=== PATIENT | female | born 1990 | race American Indian/Alaskan Native ===

== ENCOUNTER 2017-01-02 04:05 | Emergency (ER) | payer SELFPAY ==
[2017-01-02 05:29] LABS: Hematocrit 35.5 % (30.3-42.9); Hemoglobin 11.4 gm/dl (10.1-14.3); Mean Corpuscular HGB Conc 32 % (30-34); Platelet Count 369 K/mm3 (140-440); Red Cell Distribution Width 19.5 % (13.2-15.2); White Blood Count 10.3 K/mm3 (4.5-11.0)
[2017-01-02 05:32] LABS: Mean Corpuscular Hemoglobin 22 pg (28-32); Mean Corpuscular Volume 68 fl (79-97)
[2017-01-02 05:34] LABS: INR 1.08 (0.87-1.13)
[2017-01-02 05:35] LABS: Partial Thromboplastin Time 24.6 Sec. (24.2-36.6)
[2017-01-02 05:37] LABS: Alanine Aminotransferase 24 units/L (7-56); Albumin 4.8 g/dL (3.9-5); Albumin/Globulin Ratio 1.3 %; Alkaline Phosphatase 111 units/L (35-129); Anion Gap 26 mmol/L; BUN/Creatinine Ratio 14; Blood Urea Nitrogen 11 mg/dL (7-17); Calcium 10.2 mg/dL (8.4-10.2); Carbon Dioxide 23 mmol/L (22-30); Chloride 101.3 mmol/L (98-107); Glucose 113 mg/dL (65-100); Lipase 13 units/L (13-60); Potassium 4.6 mmol/L (3.6-5.0); Sodium 146 mmol/L (137-145); Total Protein 8.4 g/dL (6.3-8.2)
[2017-01-02 06:00] LABS: Bilirubin,Urine NEG (Negative); Blood,Urine SM (Negative); Ketones,Urine TR mg/dL (Negative); Leukocyte Esterase,Urine NEG (Negative); Mucus,Urine 3+ /HPF; Nitrite,Urine NEG (Negative)
[2017-01-02 06:32] LABS: Erythrocyte Sedimentation Rate 2 mm/Hr (0-20)
[2017-01-02] MEDS ORDERED: NACL 0.9% 1000 ML 1,000 ML IV ONE (06:48)
[2017-01-02] MEDS ORDERED: ZOFRAN IV ONE (06:48)
[2017-01-02] MEDS ORDERED: BENTYL IM ONE (06:48)
--- NOTE | 2017-01-02 06:52 | Emergency Department Report ---
ED Abdominal Pain HPI - General Chief Complaint: Abdominal Pain Stated Complaint: ABD PAIN, N/V/D, CHILLS Time Seen by Provider: 01/02/17 06:26 Source: patient Mode of arrival: Ambulatory Limitations: No Limitations - History of Present Illness Initial Comments: 26-year-old female who presents to emergency department complaining of abdominal pain. Patient has had abdominal pain cramping nausea vomiting and diarrhea for the last 4 days. 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 She's had low-grade temperature here in the emergency department. She denies fevers and chills otherwise. She's had no blood in her stool. Denies any known sick contacts. Otherwise no other complaints. MD Complaint: abdominal pain -: days(s) (4) Location: epigastric Radiation: none Severity: moderate Severity scale (0 -10): 0 Quality: cramping Improves With: nothing Worsens With: nothing Associated Symptoms: nausea, vomiting, diarrhea, fever. denies: chills, constipation, dysuria, hematemesis, hematochezia, melena - Related Data Previous Rx's Medication Instructions Recorded Last Taken Type Ondansetron [Zofran Odt] 4 mg PO Q6HR PRN #10 tab.rapdis 01/02/17 Unknown Rx Allergies Allergy/AdvReac Type Severity Reaction Status Date / Time No Known Allergies Allergy Unverified 01/02/17 04:22 ED Review of Systems ROS: Stated complaint: ABD PAIN, N/V/D, CHILLS Other details as noted in HPI Comment: All other systems reviewed and negative Constitutional: fever, malaise. denies: chills ENT: denies: ear pain, throat pain Respiratory: denies: cough, shortness of breath, wheezing Cardiovascular: denies: chest pain, palpitations Endocrine: no symptoms reported Gastrointestinal: abdominal pain, nausea, vomiting, diarrhea Genitourinary: denies: urgency, dysuria, discharge Musculoskeletal: denies: back pain Skin: denies: rash, lesions Neurological: denies: headache, weakness Psychiatric: denies: anxiety, depression Hematological/Lymphatic: denies: easy bleeding, easy bruising ED Past Medical Hx - Past Medical History Previous Medical History?: No - Surgical History Past Surgical History?: No - Family History Family history: no significant - Social History Smoking Status: Never Smoker Substance Use Type: Alcohol - Medications Home Medications: Home Medications Medication Instructions Recorded Confirmed Last Taken Type Ondansetron [Zofran Odt] 4 mg PO Q6HR PRN #10 tab.rapdis 01/02/17 Unknown Rx ED Physical Exam - General Limitations: No Limitations General appearance: alert, in no apparent distress - Head Head exam: Present: atraumatic, normocephalic - Eye Eye exam: Present: normal appearance. Absent: scleral icterus, conjunctival injection - ENT ENT exam: Present: mucous membranes dry - Neck Neck exam: Present: normal inspection - Respiratory Respiratory exam: Present: normal lung sounds bilaterally. Absent: respiratory distress, wheezes - Cardiovascular Cardiovascular Exam: Present: normal rhythm, tachycardia, normal heart sounds. Absent: systolic murmur, diastolic murmur, rubs, gallop - GI/Abdominal GI/Abdominal exam: Present: soft, tenderness (epigastric tenderness), normal bowel sounds. Absent: distended, guarding, rebound - Extremities Exam Extremities exam: Present: normal inspection - Back Exam Back exam: Present: normal inspection - Neurological Exam Neurological exam: Present: alert, oriented X3 - Psychiatric Psychiatric exam: Present: normal affect, normal mood - Skin Skin exam: Present: warm, dry, intact, normal color. Absent: rash ED Course Vital Signs 01/02/17 01/02/17 01/02/17 04:09 06:32 07:46 Temperature 98.1 F 100.2 F H 98.7 F Pulse Rate 152 H 116 H 94 H Respiratory 20 18 18 Rate Blood Pressure 125/74 112/71 106/68 [Right] O2 Sat by Pulse 97 97 99 Oximetry 01/02/17 09:25 Temperature Pulse Rate 82 Respiratory 18 Rate Blood Pressure 95/54 [Right] O2 Sat by Pulse 96 Oximetry ED Medical Decision Making - Lab Data Result diagrams: 01/02/17 04:38 01/02/17 04:38 Laboratory Results - last 24 hr 01/02/17 01/02/17 01/02/17 04:38 04:38 04:38 WBC 10.3 RBC 5.20 H Hgb 11.4 Hct 35.5 MCV 68 L MCH 22 L MCHC 32 RDW 19.5 H Plt Count 369 Seg 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 PT 14.6 INR 1.08 APTT 24.6 VBG pH Sodium Potassium Chloride Carbon Dioxide Anion Gap BUN Creatinine Estimated GFR BUN/Creatinine Ratio Glucose Lactic Acid Calcium Magnesium Total Bilirubin AST ALT Alkaline Phosphatase Troponin T NT-Pro-B Natriuret Pep Total Protein Albumin Albumin/Globulin Ratio Lipase HCG, Qual Negative Urine Color Urine Turbidity Urine pH Ur Specific [place] Urine Protein Urine Glucose (UA) Urine Ketones Urine Blood Urine Nitrite Urine Bilirubin Urine Urobilinogen Ur Leukocyte Esterase Urine WBC (Auto) Urine RBC (Auto) U Epithel Cells (Auto) Hyaline Casts Urine Mucus 01/02/17 01/02/17 01/02/17 04:38 04:38 04:38 WBC RBC Hgb Hct MCV MCH MCHC RDW Plt Count Seg Neutrophils % ESR PT INR APTT VBG pH Sodium 146 H Potassium 4.6 Chloride 101.3 Carbon Dioxide 23 Anion Gap 26 BUN 11 Creatinine 0.8 Estimated GFR > 60 BUN/Creatinine Ratio 14 Glucose 113 H Lactic Acid 4.80 H* Calcium 10.2 Magnesium Total Bilirubin 0.60 AST 24 ALT 24 Alkaline Phosphatase 111 Troponin T < 0.010 NT-Pro-B Natriuret Pep 15.67 Total Protein 8.4 H Albumin 4.8 Albumin/Globulin Ratio 1.3 Lipase 13 HCG, Qual Urine Color Urine Turbidity Urine pH Ur Specific [place] Urine Protein Urine Glucose (UA) Urine Ketones Urine Blood Urine Nitrite Urine Bilirubin Urine Urobilinogen Ur Leukocyte Esterase Urine WBC (Auto) Urine RBC (Auto) U Epithel Cells (Auto) Hyaline Casts Urine Mucus 01/02/17 01/02/17 01/02/17 04:38 04:38 04:49 WBC RBC Hgb Hct MCV MCH MCHC RDW Plt Count Seg Neutrophils % ESR PT INR APTT VBG pH 7.436 H Sodium Potassium Chloride Carbon Dioxide Anion Gap BUN Creatinine Estimated GFR BUN/Creatinine Ratio Glucose Lactic Acid Calcium Magnesium 1.70 Total Bilirubin AST ALT Alkaline Phosphatase Troponin T NT-Pro-B Natriuret Pep Total Protein Albumin Albumin/Globulin Ratio Lipase HCG, Qual Urine Color Yellow Urine Turbidity Clear Urine pH 7.0 Ur Specific [place] 1.025 Urine Protein 100 mg/dl Urine Glucose (UA) Neg Urine Ketones Tr Urine Blood Sm Urine Nitrite Neg Urine Bilirubin Neg Urine Urobilinogen 2.0 Ur Leukocyte Esterase Neg Urine WBC (Auto) 4.0 Urine RBC (Auto) 53.0 U Epithel Cells (Auto) 28.0 H Hyaline Casts 2 Urine Mucus 3+ - Medical Decision Making 18-year-old female presents to the emergency department with nausea vomiting diarrhea. Patient is clearly dehydrated on clinical exam. Mucous membranes are extremely dry and she is tachycardic. Plan to treat her with IV fluids and Zofran and Bentyl initially. Plan to rehydrate with at least 2 L of IV fluid. Plan to reassess after fluids. Portions of this chart were dictated with dictation software. There may be dictation errors contained within this note. Critical care attestation.: If time is entered above; I have spent that time in minutes in the direct care of this critically ill patient, excluding procedure time. ED Disposition Clinical Impression: Nausea & vomiting, Gastroenteritis Disposition: DC-01 TO HOME OR SELFCARE Is pt being admited?: No Condition: Stable Instructions: Abdominal Pain (ED), Acute Nausea and Vomiting (ED), Gastroenteritis (ED) Prescriptions: Ondansetron [Zofran Odt] 4 mg PO Q6HR PRN #10 tab.rapdis PRN Reason: Nausea And Vomiting Referrals: PRIMARY CARE, [Primary Care Provider] - 3-5 Days
[2017-01-02 07:45] LABS: Basophils % (Manual) 0 % (0.0-1.8); Blastocytes % (Manual) 0 %; Eosinophils % (Manual) 0 % (0.0-4.3)
[2017-01-02 07:46] LABS: Hypochromasia 2+; Microcytosis 1+; Tear Drop Cells Rare
[2017-01-02 07:47] LABS: Elliptocytes Few; Ovalocytes 1+
[2017-01-02 07:48] LABS: Diff Status Complete
[2017-01-02 09:26] VITALS: BP 95/54
== END 2017-01-02 10:29 | disposition home or self-care (01) ==
LOC: ED 04:05
DX: K52.9 Noninfective gastroenteritis and colitis, unspecified (principal)
CPT/HCPCS: 36415; 80053; 81001; 82140; 82805; 83690; 83735; 83880; 84484; 84703; 85007; 85025; 85610; 85652; 85730; 93005; 93010; 96361; 96372; 96374; 99284; J0500; J2405; J7030